=== PATIENT | female | born 1950 | race Caucasian/White ===

== ENCOUNTER → 2017-06-20 | Outpatient (CLI) | payer OTHER ==
[2017-06-20 13:32] LABS: ESTIMATED AVERAGE GLUCOSE 126 mg/dl; HA1C FLAG Normal (Normal)
[2017-06-20 14:01] LABS: FERRITIN 47.3 ng/ml (8.0-388.0); THYROID STIMULATING HORMONE 2.45 uIu/ml (0.300-4.500)
[2017-06-20 14:15] LABS: LYME DISEASE AB IGG NEG (NEG); LYME DISEASE AB IGM NEG (NEG)
[2017-06-21 17:03] LABS: ALBUMIN 4.3 G/DL (3.8-4.8); GAMMA GLOBULIN 0.9 G/DL (0.8-1.7); IMMUNOFIXATION IGA SERUM 142 MG/DL (81-463); IMMUNOFIXATION IGG SERUM 979 MG/DL (694-1618); IMMUNOFIXATION IGM SERUM 113 MG/DL (48-271); TOTAL PROTEIN 7.1 G/DL (6.2-8.3)
== END | disposition home or self-care (01) ==
LOC: C.LABMFLN 09:52
PROVIDERS: ATTEND Physician Assistant
DX: R20.2 Paresthesia of skin (principal); G25.81 Restless legs syndrome; R73.9 Hyperglycemia, unspecified

== ENCOUNTER → 2017-11-07 | Outpatient (CLI) | payer OTHER ==
[2017-11-07 12:39] LABS: BASO % 0.3 %; BASO ABS # 0.02 K/uL (0-0.2); EOS % 1.7 %; EOS ABS # 0.12 K/uL (0-0.5); HEMOGLOBIN 14.4 g/dL (12.0-16.0); IG# 0.02 K/uL (0.00-0.02); LYMPH % 33.7 %; LYMPH ABS # 2.42 K/uL (1.2-3.4); MEAN CELL VOLUME 88.7 fL (80-100); MEAN CORPUSCULAR HEMOGLOBIN 29.7 pg (25-34); MEAN CORPUSCULAR HGB CONC 33.5 g/dl (32-36); MEAN PLATELET VOLUME 9.3 fL (7.4-10.4); MONO % 9.9 %; MONO ABS # 0.71 K/uL (0.11-0.59); NEUT % 54.1 %; PLATELET COUNT 360 K/uL (130-400); RED CELL DISTRIBUTION WIDTH CV 13.5 % (11.5-14.5); RED CELL DISTRIBUTION WIDTH SD 43.5 fL (36.4-46.3); WHITE BLOOD COUNT 7.19 K/uL (4.8-10.8)
[2017-11-07 12:55] LABS: HEMOGLOBIN A1C 6.1 % (4.5-5.6)
[2017-11-07 14:43] LABS: ALBUMIN 3.8 gm/dl (3.4-5.0); ALKALINE PHOSPHATASE 94 U/L (45-117); ALT/SGPT 37 U/L (12-78); AST/SGOT 19 U/L (15-37); BLOOD UREA NITROGEN 12 mg/dl (7-18); CALCIUM 9.1 mg/dl (8.5-10.1); CARBON DIOXIDE 26 mmol/L (21-32); CHOLESTEROL 208 mg/dl (0-200); CREATININE 0.86 mg/dl (0.60-1.20); GLUCOSE 102 mg/dl (70-99); LDL CHOLESTEROL CALCULATED 89 mg/dl; POTASSIUM 3.8 mmol/L (3.5-5.1); SODIUM 137 mmol/L (136-145); TOTAL PROTEIN 7.5 gm/dl (6.4-8.2)
== END | disposition home or self-care (01) ==
LOC: C.LABMFLN 07:40
PROVIDERS: ATTEND Physician Assistant
DX: M85.80 Other specified disorders of bone density and structure, unspecified site (principal); F32.9 Major depressive disorder, single episode, unspecified; E78.5 Hyperlipidemia, unspecified; R73.03 Prediabetes

== ENCOUNTER → 2018-04-30 | Outpatient (CLI) | payer OTHER ==
[2018-04-30 13:27] LABS: ALKALINE PHOSPHATASE 66 U/L (45-117); ALT/SGPT 57 U/L (12-78); AST/SGOT 34 U/L (15-37); BLOOD UREA NITROGEN 16 mg/dl (7-18); CALCIUM 8.9 mg/dl (8.5-10.1); CARBON DIOXIDE 27 mmol/L (21-32); CHOLESTEROL 172 mg/dl (0-200); GLUCOSE 102 mg/dl (70-99); LDL CHOLESTEROL CALCULATED 95 mg/dl; POTASSIUM 3.9 mmol/L (3.5-5.1); SODIUM 140 mmol/L (136-145); TOTAL PROTEIN 7.5 gm/dl (6.4-8.2)
[2018-04-30 13:36] LABS: HEMOGLOBIN A1C 6.1 % (4.5-5.6)
== END | disposition home or self-care (01) ==
LOC: C.LABMFLN 09:09
PROVIDERS: ATTEND Physician Assistant
DX: F32.9 Major depressive disorder, single episode, unspecified (principal); E78.5 Hyperlipidemia, unspecified; E55.9 Vitamin D deficiency, unspecified; R73.03 Prediabetes

== ENCOUNTER 2020-11-09 04:52 | Observation (INO) ==
--- NOTE | 2020-10-13 12:40 | Anesthesiology Consultation ---
Date of Service October 13, 2020 Assessment & Plan (1) Encounter for pre-operative examination: Chart Review Chart Review: Pending: Refer to Additional Notes / Consult section (response from PCP re: elevated PTT and will await preop Covid testing results ) and Patient NOT seen in Pre Admission Testing Discussed elevated PTT with Dr. Morillo who recommended PCP advice. Pt will need repeat PTT prior to surgery to ensure lab does not remain elevated. If still elevated- may need further evaluation. Did write note to PCP through [facility] system- will await response. Surgeon's office was also informed. Per nursing assessment 10/13/20, pt resides in [facility]. Wears mask, uses good hand hygiene and socially distances. No known Covid positive contacts or Covid related symptoms. Pt getting preop Covid testing 11/02/20 at [facility]= will await results. Seen by PCP 08/17/2020 = patient seen for preop visit. Preop testing from August 2020 reviewed. Patient admit ROSARIO for the past several months. PCP did order stress test prior to proceeding with planned surgery. Addendum to PCP note 09/06/2020 ="I reviewed patient's dobutamine stress echocard iogram obtained 09/02/20 which was negative for inducible ischemia. LVEF normal. No valvular abnormalities. Other studies including CXR, EKG, CBC, BMP, coag studies, A1C, and UA were reviewed without any acute findings. She has no present contraindication to surgery at this time. Surgery risk is acceptable." History Surgery Operation Date: 11/09/20 07:00 Proposed Procedures p Right Total Hip Arthroplasty - Jude Lucas DO Height/Weight Height: 5 ft 1.5 in Weight: 92.986 kg Allergies Allergy/AdvReac Type Severity Reaction Status Date / Time No Known Drug Allergies Allergy Unknown Verified 10/13/20 11:43 Medications Home Medications Medication Instructions Recorded Confirmed Last Taken aspirin 81 mg tablet,delayed 81 mg PO QPM tab 05/14/19 10/13/20 Unknown release calcium carbonate 600 mg (1,500 1 tab PO QAM 05/14/19 10/13/20 Unknown mg)-vitamin D3 400 unit tablet fexofenadine 180 mg tablet 180 mg PO QAM tab 05/14/19 10/13/20 Unknown cholecalciferol (vitamin D3) 125 5,000 units PO QAM 05/23/19 10/13/20 Unknown mcg (5,000 unit) capsule omega-3 fatty acids 1,000 mg 1,000 mg PO QAM cap 05/23/19 10/13/20 Unknown capsule venlafaxine 37.5 mg See Rx Instructions .ROUTE 04/28/20 10/13/20 Unknown capsule,extended release 24 hr .COMPLEX #30 capsule acetaminophen [Tylenol Extra 1,000 mg PO BID 07/21/20 10/13/20 Unknown Strength] fenofibrate nanocrystallized 145 145 mg PO QPM #90 tab 07/22/20 10/13/20 Unknown mg tablet pramipexole 0.25 mg tablet 0.5 mg PO QPM 30 Days #60 tab 07/22/20 10/13/20 Unknown carbidopa 10 mg-levodopa 100 mg 1 tab PO TID PRN 30 Days #90 tab 08/10/20 10/13/20 Unknown tablet gabapentin 300 mg capsule 300 mg PO BID 90 Days #180 cap 08/10/20 10/13/20 Unknown fluticasone propionate 50 2 spray INTRANASAL QAM #15.8 ml 08/17/20 10/13/20 Unknown mcg/actuation nasal spray,suspension atorvastatin 20 mg tablet See Rx Instructions .ROUTE 09/21/20 10/13/20 Unknown .COMPLEX #18 tablet lactobacillus combination no.4 3,000 mmu cells PO QAM 10/13/20 10/13/20 Unknown [Probiotic] Past Medical History Medical History (Updated 10/13/20 @ 12:48 by Devorah Angeles PA-C) Acne Depression Heartburn Hyperlipidemia Idiopathic polyneuropathy feet Lumbosacral radiculopathy Migraine hx Osteopenia Prediabetes diet managed Raynauds syndrome AFFECTS HANDS ON OCC Restless legs syndrome Reason for Sinamet. Follows with neuro- per last note 08/10/20- RLS clinically stable- aware of upcoming LUIS ANGEL Seasonal allergies Sleep apnea did not tolerate device-NO DEVICE SOBOE (shortness of breath on exertion) OUT OF SHAPE Vertigo HX Past Family History Family History Mother Myocardial infarction Diabetes Father Colon cancer Alzheimer disease Brother Diabetes Denies family history of Ovarian cancer Prostate cancer Breast cancer Past Surgical History Surgical History History of colonoscopy History of esophagogastroduodenoscopy (EGD) History of shoulder surgery left Social History Smoking Status: Never smoker Do You Dip or Chew Tobacco: No Hx Alcohol Use: No Hx Substance Use: No Testing Laboratory Results 09/22/20= WBC: 7.32 H/H: 14.0/43.3 PLATELETS: 412 SODIUM: 137 POTASSIUM: 4.1 CHLORIDE: 103 CO2: 20 BUN: 20 CREATININE: 0.9 GLUCOSE: 138 HGB A1C: 6.1 PT: 13.5 PTT: 41 INR: 1.02 UA: Trace ketone, 30 UA protein, 1019 CA ox Crystal Electrocardiogram Date: 08/05/20 Findings: + NSR @ (69) Normal EKG. Chest X-Ray Date: 08/05/20 Findings: + NAD There is mild bibasilar scarring/atelectasis. Stress Test Date: 09/02/20 Type: DSE Resting EF: 55-59% Resting LV Function: normal Valvular Disease: no significant valvular disease Stress echo is negative for inducible ischemia. MPHR 96%. No significant arrhythmias were noted. Resting EKG is normal sinus rhythm. The stress EKG response showed no evidence of ischemia. Type I diastolic dysfunction.
--- NOTE | 2020-11-08 11:03 | History & Physical Report ---
Date of Service November 09, 2020 Assessment & Plan (1) Degenerative joint disease of right hip: I have indicated the patient for right total hip replacement. The risks, benefits and complications of surgery were explained to the patient which include but not limited to infection, acute blood loss, DVT/PE, injury to nerves, vessels, bone, soft tissue, arthrofibrosis, chronic pain, failure of the prosthesis, hip dislocation, leg length discrepancy, need for additional surgery, cardiac and pulmonary events and . The patient wished to proceed with surgery and informed consent was obtained at this time. We will plan for 81mg ASA BID post-operatively for DVT prophylaxis. Upon discharge the patient will be discharged home with home health services. Appropriate clearances by PCP were obtained. History of Present Illness Chief Complaint: Right hip pain/DJD Primary Care Provider: Rimma Lemus PA-C The patient is a 70 year old female who presents with complaints of severe right hip pain and DJD. The patient has failed outpatient conservative treatments to this point which included NSAIDS, IA corticosteroid injection, home exercise/walking program. The patient's pain and limited function have progressed to the point where they severely hinder their activities of daily living and they no longer tolerate exercise programs. They are requesting to proceed with total hip replacement surgery. Allergies Allergy/AdvReac Type Severity Reaction Status Date / Time No Known Drug Allergies Allergy Unknown Verified 10/13/20 11:43 Home Medications Medication Instructions Recorded Confirmed Type aspirin 81 mg tablet,delayed 81 mg PO QPM tab 05/14/19 11/09/20 History release calcium carbonate 600 mg (1,500 1 tab PO QAM 05/14/19 11/09/20 History mg)-vitamin D3 400 unit tablet fexofenadine 180 mg tablet 180 mg PO QAM tab 05/14/19 11/09/20 History cholecalciferol (vitamin D3) 125 5,000 units PO QAM 05/23/19 11/09/20 History mcg (5,000 unit) capsule omega-3 fatty acids 1,000 mg 1,000 mg PO QAM cap 05/23/19 11/09/20 History capsule venlafaxine 37.5 mg See Rx Instructions .ROUTE 04/28/20 11/09/20 Rx capsule,extended release 24 hr .COMPLEX #30 capsule acetaminophen [Tylenol Extra 1,000 mg PO BID 07/21/20 11/09/20 History Strength] fenofibrate nanocrystallized 145 145 mg PO QPM #90 tab 07/22/20 11/09/20 Rx mg tablet carbidopa 10 mg-levodopa 100 mg 1 tab PO TID PRN 30 Days #90 tab 08/10/20 11/09/20 Rx tablet gabapentin 300 mg capsule 300 mg PO BID 90 Days #180 cap 08/10/20 11/09/20 Rx fluticasone propionate 50 2 spray INTRANASAL QAM #15.8 ml 08/17/20 11/09/20 Rx mcg/actuation nasal spray,suspension atorvastatin 20 mg tablet See Rx Instructions .ROUTE 09/21/20 11/09/20 Rx .COMPLEX #18 tablet lactobacillus combination no.4 3,000 mmu cells PO QAM 10/13/20 11/09/20 History [Probiotic] Centrum 1 tab PO DAILY 11/09/20 11/09/20 History pramipexole [Mirapex] 0.5 mg PO QPM 11/09/20 11/09/20 History Past Med/Surg History Medical History Acne Depression Heartburn Hyperlipidemia Idiopathic polyneuropathy feet Lumbosacral radiculopathy Migraine hx Osteopenia Prediabetes diet managed Raynauds syndrome AFFECTS HANDS ON OCC Restless legs syndrome Reason for Sinamet. Follows with neuro- per last note 08/10/20- RLS clinically stable- aware of upcoming LUIS ANGEL Seasonal allergies Sleep apnea did not tolerate device-NO DEVICE SOBOE (shortness of breath on exertion) OUT OF SHAPE Vertigo HX Surgical History History of colonoscopy History of esophagogastroduodenoscopy (EGD) History of shoulder surgery left Family History Mother Myocardial infarction Diabetes Father Colon cancer Alzheimer disease Brother Diabetes Denies family history of Ovarian cancer Prostate cancer Breast cancer Social History Smoking Status: Never smoker Second Hand Exposure: No; Do You Dip or Chew Tobacco: No; Hx Alcohol Use: No Hx Substance Use: No Preferred Language: Malian Communication Ability: Effective Visual Impairment: Partially Limited Hearing Ability: Normal Paste Thinner Required: No Beliefs That Will Affect Care: None marital status: Current Living Situation: Spouse current occupational status: retired Other Information That Helps Us Care for You: No Feels Safe at Home: Yes Safety Concerns: Feels Safe At This Time Childhood Exposure to Second-Hand Smoke: No caffeine: Yes during the past year weight has: remained stable Dental Care, Regularly: Yes Physical Activity Frequency: Does not Exercise Seatbelt Use: always Sunscreen Use: Yes Do you think of yourself as: straight/heterosexual Assistive Devices: Glasses Review of Systems Review of Systems: All systems reviewed & are unremarkable except as noted in HPI & below Constitutional: as per Subjective / HPI Physical Exam Physical Exam: RLE NVSI +EHL/FHL/TA/GS SILT grossly, +2 DP pulse, compartments soft NT, limited painful ROM, antalgic gait. Constitutional: WD/WN, vitals as above Eyes: PERRL, conjunctivae normal, anicteric sclerae ENMT: external ear and nose normal, oropharynx normal Neck: trachea midline, no thyromegaly Respiratory: normal respiratory effort, lungs clear to auscultation Cardiovascular: RRR, no murmur, no edema Gastrointestinal (Abdomen): normal bowel sounds, soft, nontender, no hepatosplenomegaly Musculoskeletal: no cyanosis or clubbing, extremities motor strength 5/5 Skin: no rashes, warm and dry Neurologic: patellar DTR's 2+ bilat, sensation intact Psychiatric: A+Ox3, euthymic affect Lymphatic: no cervical or axillary lymphadenopathy Results & Data Results & Data ([facility]) Diagnostic Findings Multiple views of the hip demonstrates severe DJD with complete loss of the joint space. +osteophytes, +sclerosis, +subchondral cysts.
[2020-11-09] MEDS ORDERED: LR 500ML BOLUS, THEN 15ML/HR IV SCH (06:00)
[2020-11-09] MEDS ORDERED: METOCLOPRAMIDE HCL 10 MG TABLET PO SCH (06:00)
[2020-11-09] MEDS ORDERED: GABAPENTIN 300 MG CAP PO SCH (06:00)
[2020-11-09] MEDS ORDERED: TRANEXAMIC ACID 1,000 MG **IV Intra-op IV SCH (06:00)
[2020-11-09] MEDS ORDERED: FAMOTIDINE 20 MG TAB PO SCH (06:00)
[2020-11-09] MEDS ORDERED: dexAMETHasone 4 MG TAB PO SCH (06:00)
[2020-11-09] MEDS ORDERED: ceFAZolin 2000MG 2,000 MG/15 ML SYR IV SCH (06:00)
[2020-11-09] MEDS ORDERED: ROPIVACAINE 0.5% HCL/PF 150 MG, BUPIVACAINE 0.75% MPF 20 ML, EPINEPHrine 30MG/30ML (OR ... INSTIL SCH (06:00)
[2020-11-09] MEDS ORDERED: ACETAMINOPHEN 500 MG TAB PO SCH (06:00)
[2020-11-09] MEDS ORDERED: CeleBREX 200 MG CAP PO SCH (06:00)
[2020-11-09] MEDS ORDERED: TRANEXAMIC ACID 1,000 MG **IV Pre-op IV SCH (06:00)
[2020-11-09] MEDS ORDERED: BUPIVACAINE 0.5 % 5 MG/1 ML PF 10ML VIAL ONE (06:24)
[2020-11-09] MEDS ORDERED: LIDOCAINE/EPINEPHRINE 2% 1:200,000 20 ML SDV ONE (06:29)
[2020-11-09] MEDS ORDERED: ONDANSETRON INJ 2 MG/ML 2 ML VIAL ONE (06:35)
[2020-11-09] MEDS ORDERED: PROPOFOL IV EMULSION 10 MG/ML 20 ML VIAL IV ONE (06:35)
[2020-11-09] MEDS ORDERED: MIDAZOLAM HCL 1 MG/ML 2ML VIAL ONE (06:35)
[2020-11-09] MEDS ORDERED: ORTHO JOINT ANESTHETIC ONE (06:42)
[2020-11-09] MEDS ORDERED: ONDANSETRON INJ 2 MG/ML 2 ML VIAL IV PRN ×2 (06:46→10:06)
[2020-11-09] MEDS ORDERED: HYDROmorphone INJ 1 MG/ML SYRINGE IV PRN (06:46)
[2020-11-09] MEDS ORDERED: KETOROLAC 30 MG/ML VIAL IV PRN (06:46)
[2020-11-09] MEDS ORDERED: ePHEDrine sulfate 50 MG/ML AMP IV PRN (06:46)
[2020-11-09] MEDS ORDERED: ATROPINE SULFATE 0.1 MG/ML 10ML SYR IV PRN (06:46)
--- NOTE | 2020-11-09 06:49 | History & Physical Bridge Note ---
Date of Service November 09, 2020 History & Physical Bridge Note I have examined the patient, reviewed the History & Physical and in the interval since the performance of the History & Physical I have noted the following changes of clinical significance: no changes noted
[2020-11-09] MEDS ORDERED: BACITRACIN INJ 50,000 UNIT VIAL ONE (06:50)
[2020-11-09] MEDS ORDERED: PHENYLEPHRINE HCL 10 MG/ML VIAL ONE (07:35)
--- NOTE | 2020-11-09 08:43 | Post Operative Brief Note ---
Immediate Post Op Note v1 Date of Surgery November 09, 2020 Pre & Post Diagnosis Operation Date: 11/09/20 07:00 Pre-Op Diagnosis: Osteoarthritis Right Hip Post-Op Diagnosis: Osteoarthritis Right Hip I identified the patient and participated in the time-out.: Yes Procedure Operation Date: 11/09/20 07:00 Actual Procedures p Right Total Hip Arthroplasty Posterior uncemented(Right) - Jude Lucas DO Surgeon Jude Lucas DO C4 Planner Haresh aMin Estimated Blood Loss 150 Findings Consistent with Post-Op Diagnosis Fluids 800 cc LR Specimens femoral head Anesthesia Type Spinal MAC Complications none Disposition Disposition: Recovery Room Overlapping Procedure I was present for: the critical portions of procedure. I was immediately available: during the entire case. Back up surgeon: was not required during procedure.
--- NOTE | 2020-11-09 08:46 | Operative Report ---
Post Operative Report Pre & Post Diagnosis Operation Date: 11/09/20 07:00 Pre-Op Diagnosis: Osteoarthritis Right Hip Post-Op Diagnosis: Osteoarthritis Right Hip I identified the patient and participated in the time-out.: Yes Procedure Operation Date: 11/09/20 07:00 Actual Procedures p Right Total Hip Arthroplasty Posterior uncemented(Right) - Jude Lucas DO Surgeon Jude Lucas DO Beef Pluck Trimmer Haresh Main Estimated Blood Loss 150 Findings Consistent with Post-Op Diagnosis Fluids 800 cc LR Specimens femoral head Anesthesia Type Spinal MAC Complications none Disposition Disposition: Recovery Room Indications The patient is a 70-year-old female who presents with severe progressive right hip DJD who has failed outpatient conservative treatments. I indicated the pa tient for a total hip replacement and the risks and benefits were explained in detail which included but not limited to infection, bleeding, blood clot, damage to surrounding bone, nerves, vessels, soft tissue, hip dislocation, failure of the prosthesis, leg length discrepancy, need for additional surgery and . The patient agreed to proceed with replacement of the hip and informed consent was obtained. Appropriate clearances were obtained. Description of Procedure COMPONENTS USED: [employer] hip system: Acetabulum size G7 48, femur size 9 standard reduced offset, femoral head 32-3.5, liner 48x32 high wall, acetabular screw 25 mm x 1. Following induction of adequate spinal anesthesia, the patient was transferred to the OR table and placed in lateral decubitus position with left hip down. The right hip was prepped and draped in the typical sterile fashion. A timeout was performed, patient identified and site manjula confirmed. Appropriate antibiotics were given. A standard posterolateral/Joel-Langenbeck incision was made. Subcutaneous tissue was sharply dissected. Electrocautery was utilized for hemostasis. The fascia was incised throughout the length of the wound and retracted with the Charnley retractor. The bursa was taken down and the short external rotators were identified. The piriformis was tagged with #1 Vicryl. The short external rotators and capsule were divided from the posterior aspect of the femur using electrocautery. The posterior capsule was tagged with #1 Vicryl. Both external rotators and posterior capsule were swept posterior and protected, along with protecting the sciatic nerve. The hip was dislocated by flexion and internally rotation in a controlled manner and exposure of the femoral neck was gained with an old-style Hohmann and a blunt cobra retractor. A femoral cutting guide was utilized for making the appropriate level femoral neck cut with reciprocating saw. The femoral head was removed, measured and reserved on the back table. Next, attention was turned to the acetabulum. A posterior and anterior offset retractor was placed to gain adequate exposure. A cetabular labrum as well as posterior capsule elements were removed using electrocautery and forceps. Fovea centralis was cleared of all soft tissue. Sequential reaming was performed starting at 44 mm and carried up to a 47 mm and decision was made to proceed with impaction of a 48 mm G7 Osteo-Ti cup. This was impacted and held using a single 25 mm acetabular screw. The trial acetabular liner was placed at this time. Next, attention was turned to the proximal femur where a Bovie and pickup was used to further clear short external rotators from their insertion on the femur. Box osteotome and canal finder was used to gain access to the femoral canal and the lateral reamer on power was used to further open the proximal lateral canal. Sequentially rasping was carried up to a 9 which gave good fit and fill of the proximal femur. A trial reduction was carried out with a 9 standard reduced offset femoral neck component a 32-3.5 mm femoral head. The trial reduction was stable in all d egrees of rotation with no [id number] impingement. The hip was dislocated, trial components were removed and access to the acetabulum was re-established. The trial liner was removed and the cup was irrigated to ensure all debris was removed. The final acetabular liner was inserted and properly seated in the cup. Access to the femur was once more gained and the size 9 femoral stem with standard reduced offset was impacted into position. The hip was once more assessed with the 32-3.5 mm femoral head. Stability was accessed and found to be excellent with equal leg lengths. The hip was dislocated for the last time and the final 32-3.5 ceramic femoral head was impacted in place and the hip was reduced. Range of motion was checked once again and found to be stable. A Betadine soak was performed. After 3 minutes, the hip was once more irrigated with copious sterile saline solution with bacitracin. The larry-incisional soft tissue was injected utilizing [facility] ortho mix which includes a combination of Ropivicaine 0.5% 150mg, Bupivicaine 0.5%/Epinephrine 1:200,000 30ml, Toradol 30mg, Dexamethasone 4mg, Ketamine 10mg, Clonidine 100mcg and NSS 30ml Orthomix solution. The piriformis, external rotators and capsule were repaired to the greater trochanter through bone tunnels using #5 FiberWire. The fascia was closed using #1 Vicryl, subcutaneous tissue was closed using 2-0 Vicryl, and skin was closed with hailee and a sterile dry dressing was applied which included Silverlon. The patient tolerated the procedure well and was transported to PACU in stable condition. Due to the complex nature of the procedure, the entire surgery was performed with the operational assistance of Haresh Main PA-C. The dam tender assistant, under direct supervision, was involved in the actual performance of all aspects of the surgical procedure including patient positioning, hemostasis, tissue retraction, instrument management and wound closure. I attest to the content of the Intraoperative Record and any orders documented therein. Any exceptions are noted below.
--- NOTE | 2020-11-09 09:24 | XRay Report ---
AP PELVIS, CROSSTABLE LATERAL RIGHT HIP History: Right total hip arthroplasty. Degenerative arthritis. Postop. FINDINGS: The patient is status post a right total hip arthroplasty. The hardware is intact. No fract ure or dislocation. Skin hailee are in place. IMPRESSION: Right total hip arthroplasty. No evidence for hardware complication ACT 112: Negative or not required by law. Electronically signed by: Ricky Sadler M.D. 11/09/2020 9:23 AM
--- NOTE | 2020-11-09 09:33 | Anesthesiology Progress Note ---
Date of Service November 09, 2020 Anesthesia Post Procedure Vital Signs Vital Signs: Temp Pulse Pulse Resp BP Pulse Ox 11/09/20 09:25 36.6 C 64 16 108/67 100 11/09/20 09:15 66 16 103/51 L 98 11/09/20 09:05 65 16 107/49 L 94 11/09/20 08:58 36.8 C 63 16 114/64 95 11/09/20 06:37 36.6 C 67 20 136/56 L 99 11/09/20 05:41 36.7 C 79 20 146/79 H 97 Pain Intensity Right Hip: Pain Intensity: 10 Transfer of Care Handoff Completed per policy Notes Mental Status: alert / awake / arousable Patient Amnestic to Procedure: Yes Nausea / Vomiting: adequately controlled Pain: adequately controlled Airway Patency, RR, SpO2: stable & adequate BP & HR: stable & adequate Hydration State: stable & adequate Anesthetic Complications: no major complications apparent
[2020-11-09] MEDS ORDERED: bisacodyL 10 MG SUPP PR PRN (10:06)
[2020-11-09] MEDS ORDERED: HYDROmorphone INJ 0.5 MG/0.5 ML SYR IV PRN (10:06)
[2020-11-09] MEDS ORDERED: diphenhydrAMINE Capsule 25 MG CAP PO PRN (10:06)
[2020-11-09] MEDS ORDERED: MAGNESIUM HYDROXIDE SUSP 30 ML UDC PO PRN (10:06)
[2020-11-09] MEDS ORDERED: METOCLOPRAMIDE HCL INJ 5 MG/ML 2 ML VIAL IV PRN (10:06)
[2020-11-09] MEDS ORDERED: NALOXONE HCL 0.4 MG/1 ML VIAL/CARP IV PRN (10:06)
[2020-11-09] MEDS: SODIUM CHLORIDE 0.9% 1000ML 1,000 ML IV SCH ×2 (10:56→20:08)
[2020-11-09] MEDS: ATORVASTATIN 20 MG TAB PO SCH ×2 (12:57→20:17)
[2020-11-09] MEDS: GABAPENTIN 300 MG CAP PO SCH ×2 (12:58→20:17)
[2020-11-09] MEDS: FLUTICASONE PROPIONATE NA SPR 16 GM BTL SCH (12:59)
[2020-11-09] MEDS: DOCUSATE SODIUM 100 MG CAP PO SCH ×2 (12:59→20:17)
[2020-11-09] MEDS: VENLAFAXINE HCL XR 37.5 MG CAPXR PO SCH (12:59)
[2020-11-09] MEDS: ACETAMINOPHEN 500 MG TAB PO SCH ×2 (13:00→21:17)
[2020-11-09] MEDS: MULTIVITAMIN TAB PO SCH (13:00)
[2020-11-09] MEDS: KETOROLAC TROMETHAMINE 15 MG/ML VIAL IV SCH ×3 (13:03→22:16)
--- NOTE | 2020-11-09 14:12 | Orthopedic Progress Note ---
Date of Service November 09, 2020 Assessment & Plan (1) Degenerative joint disease of right hip: Status post right total hip arthroplasty -Ancef x24 -DVT prophylaxis: SCDs, teds, 81mg ASA twice daily -Weight-bear as tolerated right lower extremity -PT/OT -Posterior hip precautions -Postoperative x-ray demonstrates a well aligned well fixed prosthesis without fracture or dislocation -A.m. labs -DC planning Admission and Anticipated Discharge Date Admission Date: November 09, 2020 Subjective Post Operative Progress Note Patient seen sitting up in bed, comfortable, denies complaints, pain well controlled, no acute issues. Review of Systems Review of Systems: All systems reviewed & are unremarkable except as noted in HPI & below Constitutional: as per Subjective / HPI Physical Exam Physical Exam: RLE NVSI +EHL/FHL/TA/GS SILT grossly, +2 DP pulse, compartments soft NT, dressing cdi. Constitutional: WD/WN, vitals as above Results & Data ([facility]) Vital Signs (Past 12 Hours) Vital Signs Temp Pulse Pulse Resp BP Pulse Ox 11/09/20 12:50 36.6 C 63 17 128/74 99 11/09/20 11:52 36.9 C 74 17 128/85 96 11/09/20 11:06 71 20 138/76 100 11/09/20 10:21 36.7 C 69 18 117/76 100 11/09/20 09:50 36.3 C L 63 16 111/78 96 11/09/20 09:35 36.6 C 62 16 108/71 100 11/09/20 09:25 36.6 C 64 16 108/67 100 11/09/20 09:15 66 16 103/51 L 98 11/09/20 09:05 65 16 107/49 L 94 11/09/20 08:58 36.8 C 63 16 114/64 95 11/09/20 06:37 36.6 C 67 20 136/56 L 99 11/09/20 05:41 36.7 C 79 20 146/79 H 97
[2020-11-09] MEDS: oxyCODONE HCL IR 5 MG TAB (IMMEDIATE RELEASE) PO PRN ×2 (14:32→21:21)
[2020-11-09] MEDS: ceFAZolin 2000MG 2,000 MG/15 ML SYR IV SCH ×2 (15:00→22:16)
[2020-11-09] MEDS ORDERED: FENOFIBRATE NANOCRYSTALLIZED 145 MG TABLET PO SCH (21:00)
[2020-11-09] MEDS ORDERED: PRAMIPEXOLE DIHYDROCHLO 0.5 MG TAB PO SCH (21:00)
[2020-11-09] MEDS ORDERED: SENNA 8.6 MG TAB PO SCH (21:00)
[2020-11-10] MEDS: ACETAMINOPHEN 500 MG TAB PO SCH ×2 (05:41→13:12)
[2020-11-10] MEDS: KETOROLAC TROMETHAMINE 15 MG/ML VIAL IV SCH (05:42)
[2020-11-10 06:13] LABS: Eosinophils # (auto) 0.01 K/uL (0-0.5); Eosinophils % (auto) 0.1 %; Hematocrit (blood only) 33.3 % (37-47); Hemoglobin 10.8 g/dL (12.0-16.0); Immature Granulocytes # (auto) 0.02 K/uL (0.00-0.02); Immature Granulocytes % (auto) 0.2 %; Lymphocytes # (auto) 1.32 K/uL (1.2-3.4); Lymphocytes % (auto) 14.1 %; Mean Corpuscular Hemoglobin 28.7 pg (25-34); Mean Corpuscular Hgb Conc 32.4 g/dL (32-36); Mean Corpuscular Volume 88.6 fL (80-100); Mean Platelet Volume 9.3 fL (7.4-10.4); Monocytes # (auto) 1.14 K/uL (0.11-0.59); Monocytes % (auto) 12.2 %; Neutrophils # (auto) 6.86 K/uL (1.4-6.5); Neutrophils % (auto) 73.4 %; Platelet Count 322 K/uL (130-400); RDW Coefficient of Variation 13.3 % (11.5-14.5); RDW Standard Deviation 42.9 fL (36.4-46.3); Red Blood Count 3.76 M/uL (4.2-5.4); White Blood Count 9.35 K/uL (4.8-10.8)
[2020-11-10 06:46] LABS: BUN Creatinine Ratio 29.4 (10-20); Calcium 8.6 mg/dl (8.5-10.1); Est GFR (African American) 76.1; Est GFR (Non-African American) 65.7; Potassium 4.8 mmol/L (3.5-5.1)
[2020-11-10] MEDS: DOCUSATE SODIUM 100 MG CAP PO SCH (08:29)
[2020-11-10] MEDS: oxyCODONE HCL IR 5 MG TAB (IMMEDIATE RELEASE) PO PRN (08:29)
[2020-11-10] MEDS: VENLAFAXINE HCL XR 37.5 MG CAPXR PO SCH (08:29)
[2020-11-10] MEDS: MULTIVITAMIN TAB PO SCH (08:29)
[2020-11-10] MEDS: GABAPENTIN 300 MG CAP PO SCH (08:29)
[2020-11-10] MEDS: FLUTICASONE PROPIONATE NA SPR 16 GM BTL SCH (08:30)
[2020-11-10] MEDS ORDERED: ASPIRIN 81 MG ECTAB PO SCH (09:00)
--- NOTE | 2020-11-10 10:40 | Orthopedic Progress Note ---
Date of Service November 10, 2020 Assessment & Plan (1) Degenerative joint disease of right hip: Status post right total hip arthroplasty POD#1 -Ancef x24 -DVT prophylaxis: SCDs, teds, 81mg ASA twice daily -Weight-bear as tolerated right lower extremity -PT/OT -Posterior hip precautions -Postoperative x-ray demonstrates a well aligned well fixed prosthesis without fracture or dislocation -A.m. labs - as above, hgb 10.8 -DC planning - home with Admission and Anticipated Discharge Date Admission Date: November 09, 2020 Subjective Post Operative Progress Note Patient seen sitting in chair at bedside, comfortable, denies complaints, pain well controlled, no acute issues. Denies F/C/N/V/SOB/CP. Review of Systems Review of Systems: All systems reviewed & are unremarkable except as noted in HPI & below Constitutional: as per Subjective / HPI Physical Exam Physical Exam: RLE NVSI +EHL/FHL/TA/GS SILT grossly, +2 DP pulse, compartments soft NT, dressing cdi. Constitutional: WD/WN, vitals as above Results & Data ([facility]) Vital Signs (Past 12 Hours) Vital Signs Temp Pulse Resp BP Pulse Ox 11/10/20 07:52 36.7 C 75 17 124/80 92 11/10/20 03:10 36.6 C 64 16 108/73 95 11/09/20 23:14 36.7 C 69 16 108/71 96 Laboratory Results 11/10/20 11/10/20 11/10/20 Range/Units 05:27 05:27 05:27 WBC 9.35 (4.8-10.8) K/uL RBC 3.76 L (4.2-5.4) M/uL Hgb 10.8 L (12.0-16.0) g/dL Hct 33.3 L (37-47) % MCV 88.6 (80-100) fL MCH 28.7 (25-34) pg MCHC 32.4 (32-36) g/dL RDW Std Deviation 42.9 (36.4-46.3) fL RDW Coeff of Luis 13.3 (11.5-14.5) % Plt Count 322 (130-400) K/uL MPV 9.3 (7.4-10.4) fL Immature Gran % (Auto) 0.2 % Neut % (Auto) 73.4 % Lymph % (Auto) 14.1 % [place] % (Auto) 12.2 % Eos % (Auto) 0.1 % Baso % (Auto) 0.0 % Neut # (Auto) 6.86 H (1.4-6.5) K/uL Lymph # (Auto) 1.32 (1.2-3.4) K/uL [place] # (Auto) 1.14 H (0.11-0.59) K/uL Eos # (Auto) 0.01 (0-0.5) K/uL Baso # (Auto) 0.00 (0-0.2) K/uL Immature Gran # (Auto) 0.02 (0.00-0.02) K/uL Sodium 141 (136-145) mmol/L Potassium 4.8 (3.5-5.1) mmol/L Chloride 109 H (98-107) mmol/L Carbon Dioxide 27 (21-32) mmol/L Anion Gap 5.0 (3-11) BUN 26 H (7-18) mg/dl Creatinine 0.90 (0.6-1.2) mg/dl Est Cr Clr Drug Dosing 63.0 ml/min Est GFR ( Amer) 76.1 Est GFR (Non-Af Amer) 65.7 BUN/Creatinine Ratio 29.4 H (10-20) Glucose 132 H (70-99) mg/dl Calcium 8.6 (8.5-10.1) mg/dl Hepatitis C Ab Screen Neg (Neg)
[2020-11-10] MEDS ORDERED: CeleBREX 200 MG CAP PO SCH (11:00)
--- NOTE | 2020-11-10 14:10 | Orthopedic Progress Note ---
Date of Service November 10, 2020 Assessment & Plan Admission and Anticipated Discharge Date Admission Date: November 09, 2020 Subjective patient rechecked after PT, she is feeling well and feels comfortable to return home today. has no other questions or concerns. please see Dr Lucas progress note for further details. Results & Data ([facility]) Vital Signs (Past 12 Hours) Vital Signs Temp Pulse Resp BP Pulse Ox 11/10/20 07:52 36.7 C 75 17 124/80 92 11/10/20 03:10 36.6 C 64 16 108/73 95
--- NOTE | 2020-11-10 19:06 | Discharge Summary ---
Date of Service November 10, 2020 Admission HPI Per Admitting Provider The patient is a 70 year old female who presents with complaints of severe right hip pain and DJD. The patient has failed outpatient conservative treatments to this point which included NSAIDS, IA corticosteroid injection, home exercise/walking program. The patient's pain and limited function have progressed to the point where they severely hinder their activities of daily living and they no longer tolerate exercise programs. They are requesting to proceed with total hip replacement surgery. Principal Diagnosis Right total hip replacement -Right hip DJD Discharge Exam RLE NVSI +EHL/FHL/TA/GS SILT grossly, +2 DP pulse, compartments soft NT, dressing cdi. Constitutional WD/WN, vitals as above Discharge Data Allergies Allergy/AdvReac Type Severity Reaction Status Date / Time No Known Drug Allergies Allergy Unknown Verified 10/13/20 11:43 Consultations 11/10/20 08:00 Consult Case Management - Discharge Planning Routine Procedures Performed Operation Date: 11/09/20 07:00 Actual Procedures p Right Total Hip Arthroplasty Posterior uncemented(Right) - Jude Lucas DO Hospital Course (1) Degenerative joint disease of right hip: The patient is a 70 -year-old female who presents with long standing history of severe right hip DJD and failed outpatient conservative treatments. The patient's symptoms have progressed to the point where it has been difficult to perform even normal activities of daily living. I indicated the patient for a right total hip arthroplasty, the risks, benefits and complications of the procedure include but not limited to infection, bleeding, damage to bone, nerves, vessels, surrounding soft tissue, may develop blood clots, loss of function, leg length discrepancy, dislocation, failure of the components, loosening of the components, the need for additional surgery and . The patient wished to proceed with surgery at this time and informed consent was obtained. Hospital Course: On 11/09/20 the patient was taken to the operating room, adequate anesthesia administered and underwent a right total hip arthroplasty. The patient tolerated the procedure well and was taken to the PACU in stable condition. Post-operatively the patient was started on a DVT ppx medication and given appropriate IV antibiotics. Consults were placed to physical therapy, occupational therapy and case management. On POD#1, the patient did well overnight and their pain was well controlled. Labs were drawn and the Hgb was 10.8. The patient progressed well with PT. Dressings were changed at this time and the incision was clean, dry and intact. The patients hospital stay was relatively uneventful and they were deemed stable by the orthopedic team and consultants to be discharged home with HH on 11/10/20. Discharge Instructions: Upon discharge the patient may weight bear as tolerates through their operative extremity. They were instructed to keep the incision clean and dry at all times. The patient may shower but should not submerge the incision, avoid bathing, pools and hot tubs. The patient was given a script for pain medication and should take as instructed. The patient was given a script for DVT ppx 81mg ASA BID and should take as directed. The patient was instructed to not drive or travel for long distances until cleared to do so. If the patient develops any symptoms of fevers, chills, nausea, vomiting, increased redness, swelling, pain or drainage from the surgical site, they should notify the office and/or proceed to the nearest emergency room. The patient should follow up in 10-14 days after surgery for their routine post-operative follow-up appointment and should call the office, to confirm the date and time. Status post right total hip arthroplasty POD#1 -Ancef x24 -DVT prophylaxis: SCDs, teds, 81mg ASA twice daily -Weight-bear as tolerated right lower extremity -PT/OT -Posterior hip precautions -Postoperative x-ray demonstrates a well aligned well fixed prosthesis without fracture or dislocation -A.m. labs - as above, hgb 10.8 -DC planning - home with Total Time Total Time Spent Total Time Spent (In Minutes): 30 Discharge Plan Discharge Items Patient Disposition: Home - Home Health Services Reason For Visit: Osteoarthritis Right Hip Discharge Diagnosis: Right total hip replacement -Right hip DJD Condition on Discharge: Good Activity: Per Instructions section Lifting: Wait until after follow-up appointment Bathing: Keep incision dry Bathing Comment: No bathing, pools or hot tubs. Sexual Activity: Wait until after follow-up appointment Exercise/Sports: Wait until after follow-up appointment Driving/Machine Use: No driving. Weightbearing: Full weightbearing Non-emergency contact: Primary Care Provider and Surgeon Call non-emergency contact if: you have any medication questions, your symptoms worsen, your pain is not controlled, your pain is worsening, your pain is unusual for you, your pain is concerning for you, you have a fever, your temperature is above 101, your wound has increased redness, your wound has increased drainage and your wound pain has increased Follow-up/Referrals: Rimma Lemus PA-C [Primary Care Provider] - Diet: Regular Addtl Attending Provider Instructions: ACTIVITY RECOMMENDATIONS: SELF CARE INSTRUCTIONS AFTER TOTAL HIP REPLACEMENT Until the incision and soft tissues around your hip have healed, there is a possibility that the hip prosthesis could dislocate. A. Observe the following precautions to prevent dislocation: 1. Don't bend your hip greater than 90 degrees. 2. Avoid crossing your legs or ankles while standing or lying. 3. Sit with your feet placed 6 inches apart. 4. When sitting, keep your knees below your hips. Sit on a firm surface, avoid deep, soft chairs and couches. Use an elevated toilet seat in the bathroom. 5. Don't bend over at the waist. Use a long handled shoehorn and a sock aid to help you put on your shoes and socks. A sheet metal worker maintenance can help you picker objects that are too high or too low to reach. 6. Keep car riding to a minimum for at least one month after surgery. B. Your balance may be shaky for a while. Use crutches or a walker until directed by your doctor. C. Use hand rails when walking on stairs. D. Wear low heeled shoes with non-slip soles. E. Be sure that your floors are free of things that could trip you - throw rugs, electrical cords, small objects. Avoid wet and waxed floors, especially with crutches and canes. F. Try to walk several times a day with rest periods between. G. Continue with all the exercises taught to you in the hospital. Again, make walking a part of your daily routine. SPECIAL CARE INSTRUCTIONS: VERY IMPORTANT TO READ AND REVIEW A. You may still be at risk for phlebitis and blood clots. 1. Wear surgical stockings (LACHO hose) for 2 weeks after surgery to improve circulation and reduce swelling. 2. Take Aspirin 81mg twice daily for 4 weeks or as directed by your doctor. This is your blood thinner. 3. High risk patients may be prescribed a stronger blood thinner if necessary. 4. If you are on Coumadin normally, your family doctor/wire winding machine operator should monitor your blood work. Expect a phone call the day of or the day after bloodwork is drawn to adjust your dosage. B. You must take antibiotics before having dental work, bladder, bowel and other surgery. Your doctor will provide you with a permanent card to carry describing precautions. C. Call [facility] if you have a fever, redness or swelling around the incision, cloudy drainage from incision, or sudden increase in pain in your hip, not relieved by your regular pain medication. D. Please call the office at if you have any concerns or questions about your operation or recovery. * YOU MAY SHOWER, NO TUB BATHS UNTIL CLEARED BY YOUR DOCTOR. * WEAR LACHO HOSE 20 HOURS PER DAY FOR 2 WEEKS. * YOU SHOULD USE A WALKER OR CRUTCHES FOR 2-4 WEEKS. THIS WILL HELP PREVENT STRAIN ON YOUR HIP MUSCLE AND ALLOW IT TO HEAL PROPERLY. YOU MAY WEAN TO A CANE TOLERATED. * MOST PATIENTS WILL HAVE HOME NURSING FOR THERAPY. IF YOU DECIDE TO DO OUTPATIENT PHYSICAL THERAPY, PLEASE SCHEDULE THIS 3 TIMES PER WEEK. * YOU MAY HAVE A LARGE, BAND-ENEIDA LIKE DRESSING (SILVERON). THIS WILL REMAIN ON YOUR INCISION FOR 7 DAYS, THEN CAN BE REMOVED. IF INCISION IS LEAKING THROUGH DRESSING, PLEASE CALL THE OFFICE . FOLLOW UP VISIT: If appointment is not already scheduled: Please call [facility] to make a follow-up appointment for 2 weeks after your surgery at . Pending Studies at Discharge: No Stand-Alone Forms: My [facility], Opioid Pain Management, Smoking Cessation Medications and DC Order Prescriptions: New celecoxib [Celebrex] 200 mg Capsule 200 mg PO BID PRN (Reason: pain/inflammation) Qty: 28 RF: 0 aspirin 81 mg Tablet,Delayed Release (Dr/Ec) 81 mg PO BID Qty: 56 RF: 0 acetaminophen 500 mg Tablet 1,000 mg PO Q8 PRN (Reason: pain/fevers) Qty: 90 RF: 0 oxycodone 5 mg Tablet 5 mg PO Q6H MDD 4 PRN (Reason: pain) Qty: 30 RF: 0 sennosides [Senokot] 8.6 mg Tablet 17.2 mg PO HS PRN (Reason: constipation) Qty: 28 RF: 0 Continued venlafaxine 37.5 mg capsule,extended release 24hr See Rx Instructions .ROUTE .COMPLEX Qty: 30 RF: 5 fenofibrate nanocrystallized 145 mg tablet 145 mg PO QPM Qty: 90 RF: 1 fluticasone propionate 50 mcg/actuation spray,suspension 2 spray intranasal QAM Qty: 15.8 RF: 1 atorvastatin 20 mg tablet See Rx Instructions .ROUTE .COMPLEX Qty: 18 RF: 1 calcium carbonate-vitamin D3 [Calcium with Vitamin D] 600 mg(1,500mg) -400 unit tablet 1 tab PO QAM RF: 0 fexofenadine 180 mg tablet 180 mg PO QAM RF: 0 omega-3 fatty acids [Fish Oil Concentrate] 1,000 mg capsule 1,000 mg PO QAM RF: 0 cholecalciferol (vitamin D3) 5,000 unit capsule 5,000 units PO QAM RF: 0 gabapentin 300 mg capsule 300 mg PO BID 90 Days Qty: 180 RF: 1 carbidopa-levodopa 10-100 mg tablet 1 tab PO TID PRN (Reason: muscle spasm) 30 Days Qty: 90 RF: 2 Probiotic 3 billion cell Capsule 3,000 mmu cells PO QAM RF: 0 pramipexole [Mirapex] 0.25 mg tablet 0.5 mg PO QPM RF: 0 Centrum 1 tab PO DAILY RF: 0 Discontinued aspirin 81 mg tablet,delayed release (DR/EC) 81 mg PO QPM RF: 0 acetaminophen [Tylenol Extra Strength] 500 mg Capsule 1,000 mg PO BID RF: 0 Discharge Orders: Discharge Order (Routine); Ordered 11/10/20 Ordered By: Lukas Johnson/Other Patient Handouts: DVT Post Op Prevention, ED T.Reilly Santiago Admission Data Admit Date/Time: 11/09/20 09:07 Attending Provider: Jude Lucas Admit Provider: Jude Lucas Primary Care Provider: Rimma Lemus Other Providers: [facility],Home Health Other Interventions: Discharge Summary Assessment (RN) Last Done: 11/10/20 14:33
== END 2020-11-10 15:42 | disposition home health service (06) ==
LOC: 3E 04:52 → ASU 04:52